=== PATIENT | female | born 1970 | race Caucasian/White ===

== ENCOUNTER 2017-10-04 14:01 | Emergency (ER) | payer OTHER ==
[~2017-10-04] VITALS: Ht 162.6 cm; Wt 72.6 kg
--- NOTE | ~2017-10-04 | EKG ---
[place] [address] [facility] [place] [address] ELECTROCARDIOGRAM REPORT Name: DUSTIN SHER [facility]Aleks[facility] [id number] Admission: 10/04/17 Attend Phys: Discharge: 10/04/17 Date of : 66 Report #: [id number] THIS REPORT FOR: //name// [facility] ED Test Date: 2017-10-04 Test Time: 14:53:21 Pat Name: DUSTIN SHER Department: Room: Gender: F [employer]: : 1970 Requested By: Argentina Burnham Order Number: [id number] MD: Chad Billingsley Measurements Intervals [place] Rate: 66 P: 56 VT: 141 QRS: 18 QRSD: 96 T: 30 QT: 443 QTc: 465 Interpretive Statements Sinus rhythm No significant abnormality Compared to ECG 06/12/2016 16:37:10 No significant changes Electronically Signed On 10-05-2017 12:59:44 CDT by Chad Billingsley [email or web address] <ELECTRONICALLY SIGNED> By: Chad Billingsley MD, LOCATED WITHIN [facility] 10/05/17 1259 [id number] 1453 Chad Billingsley MD, FACC /EPI
[2017-10-04 14:55] LABS: HEMATOCRIT 30.9 % (37.0-47.0); HEMOGLOBIN 10.9 gm/dL (12.0-15.0); MCHC 35.2 g/dL (28.0-37.0); MCV 85.3 fL (80.0-100.0); RBC 3.62 mil/uL (4.20-5.00); RDW 12.8 % (10.5-14.5); WBC 7.2 thou/uL (4.0-11.0)
[2017-10-04 15:07] LABS: ANION GAP 9 mmol/L (7-16); BUN 9 mg/dL (7-18); CALCIUM 9.7 mg/dL (8.5-10.1); CHLORIDE 105 mmol/L (98-107); CO2 24 mmol/L (21-32); CREATININE 1.1 mg/dL (0.6-1.0); GLUCOSE 89 mg/dL (74-106); POTASSIUM 3.3 mmol/L (3.5-5.1); SODIUM 138 mmol/L (136-145)
[2017-10-04 15:12] LABS: TROPONIN-I <0.06 ng/mL (<0.06)
[2017-10-04] MEDS ORDERED: CLONAZEPAM 1 MG1 M1 PO (15:32)
[2017-10-04 16:15] VITALS: BP 122/84
== END 2017-10-04 16:15 | disposition home or self-care (01) ==
LOC: ER 14:01
PROVIDERS: Student in an Organized Health Care Education/Training Program
DX: F41.0 Panic disorder [episodic paroxysmal anxiety] (principal); R20.0 Anesthesia of skin; F17.200 Nicotine dependence, unspecified, uncomplicated; I10 Essential (primary) hypertension; N80.9 Endometriosis, unspecified; M79.7 Fibromyalgia